=== PATIENT | male | born 1950 | race Caucasian/White ===

== ENCOUNTER 2018-06-17 06:46 | Day surgery (SDC) | payer MEDICARE, BC ==
[~2018-06-17 06:46] MED LIST: ACETAMINOPHEN 1,000 MG/100 ML BTL IV ONE
[2018-06-17] MEDS ORDERED: LIDOCAINE 2% MDV (20MG/ML) 20ML VIAL IV ONE (06:47)
[2018-06-17] MEDS ORDERED: KETAMINE HCL 100MG/1ML VIAL INJ ONE (06:47)
[2018-06-17] MEDS ORDERED: SEVOFLURANE 250 ML INH ONE (06:47)
[2018-06-17] MEDS ORDERED: PROPOFOL 10 MG/ML VIAL IV ONE (06:47)
[2018-06-17] MEDS ORDERED: KETOROLAC 30 MG/ML VIAL IVP ONE (06:47)
[2018-06-17] MEDS ORDERED: HYDROCODONE/APAP 5/325MG TABLET PO ONE (06:47)
--- NOTE | 2018-06-18 10:50 | Operative Note ---
DATE OF SURGERY: 06/17/2018 Surgeon: Crescencio Torres DO Referring physician: Med Weathers DO PREOPERATIVE DIAGNOSIS: Trigger finger of the right little finger. POSTOPERATIVE DIAGNOSIS: Trigger finger of the right little finger. OPERATION: Tenotomy A1 misty, right little finger. Anesthesia: General. PROCEDURE: This 67-year-old male was taken to the operating room and placed in the supine position on the operating room table. General anesthesia was induced and the right upper extremity was elevated. It was prepped with Hibiclens and draped in the usual sterile fashion. It was exsanguinated and the tourniquet inflated to 250 mmHg. A palmar incision was utilized over the head of the fifth metacarpal of the right hand in a longitudinal fashion in line with the tendon. Dissection was carried down through the skin and subcutaneous tissue. Hemostasis was obtained with the electrocautery. The proximal edge of the A1 misty was easily identified. It was then split under direct vision to its distal margin and then the tenosynovium split proximally to completely free up the tendon. There was a nodularity of the sublimis tendon, which was not disturbed. The tendon itself otherwise appeared normal. The wound was irrigated and closed with interrupted 6-0 nylon suture. Sterile dressings were applied. The patient was taken to the recovery room in satisfactory condition. GROSS PATHOLOGY: This patient demonstrated locking of the right little finger, which completely resolved with tenotomy of the A1 misty. Movement of the finger did not reveal any further locking nodularity of the sublimis tendon was identified. [facility]
== END 2018-06-17 09:40 | disposition home or self-care (01) ==
LOC: SUR 06:46
PROVIDERS: ATTEND Orthopaedic Surgery
DX: M65.351 Trigger finger, right little finger (principal); I10 Essential (primary) hypertension; E11.9 Type 2 diabetes mellitus without complications; Z79.4 Long term (current) use of insulin
CPT/HCPCS: J1885; J3490

== ENCOUNTER 2018-11-04 07:55 | Day surgery (SDC) | payer MEDICARE, BC ==
[2018-11-04] MEDS ORDERED: PROPOFOL 10 MG/ML VIAL IV ONE (07:56)
--- NOTE | 2018-11-05 08:00 | Operative Note ---
DATE OF SURGERY: 11/04/2018 OPERATION: COLONOSCOPY with cold snare and cold forceps polypectomies. PREOPERATIVE DIAGNOSIS: Personal history of colon polyps. POSTOPERATIVE DIAGNOSIS: Colon polyps and sigmoid diverticulosis. ESTIMATED BLOOD LOSS: Minimum. SPECIMENS: Ascending polyp, transverse polyps, descending polyps, sigmoid polyp. PREPARATION QUALITY: Good to excellent. COMPLICATIONS: None apparent. PROCEDURE: After informed consent was obtained from the patient, he was placed in the left lateral decubitus position in the endoscopy suite, sedated and monitored by the department of anesthesia. Digital rectal examination was unremarkable. A well-lubricated [id number] colonoscope was inserted into the rectum and advanced to the cecum. The cecum and cecal bulb were unremarkable. The ascending colon revealed a 5 mm sessile polyp removed with a cold snare. The polyp was retrieved without incident. The remainder of the ascending colon was unremarkable. There were 2 transverse colon polyps which were quite diminutive each removed with a cold forceps. The descending colon and sigmoid colon each revealed one 4-5 mm sessile polyp removed with a cold snare with minimal bleeding noted. The polyps were each retrieved. There were [id number] sigmoid diverticular changes. No inflammation was noted. The rectum was unremarkable in forward and in J-turn views. The endoscope was straightened, the rectal ampulla deflated, and the endoscope was removed. RECOMMENDATIONS: I suggest the patient follow a high-fiber diet. He will likely require repeat colonoscopy in 3 years but a final determination based on tissue histology. As always, thank you for allowing me to participate in the healthcare of your patients. CC: Dr. Linda SALEH
== END 2018-11-04 09:35 | disposition home or self-care (01) ==
LOC: HOP 07:55
PROVIDERS: ATTEND Internal Medicine Gastroenterology
DX: Z12.11 Encounter for screening for malignant neoplasm of colon (principal); Z86.010 Personal history of colon polyps; D12.2 Benign neoplasm of ascending colon; D12.4 Benign neoplasm of descending colon; D12.5 Benign neoplasm of sigmoid colon; D12.3 Benign neoplasm of transverse colon; K57.30 Diverticulosis of large intestine without perforation or abscess without bleeding; I10 Essential (primary) hypertension; E11.9 Type 2 diabetes mellitus without complications; M19.90 Unspecified osteoarthritis, unspecified site